=== PATIENT | male | born 1995 | race Hispanic/Latino ===

== ENCOUNTER 2023-11-14 06:30 | Emergency (ER) | payer SELFPAY ==
[~2023-11-14] VITALS: Ht 182.9 cm; Wt 133.8 kg
[2023-11-14 06:34] VITALS: TEMP 99.3
[2023-11-14 06:59] LABS: BASOPHILS % 0.1 % (0.0-1.0); EOSINOPHILS % 0.1 % (0.0-6.0); HEMATOCRIT 42.5 % (38.2-49.6); HEMOGLOBIN 14.2 g/dL (14.0-18.0); LYMPHOCYTES % 22.1 % (18.0-39.1); MEAN CORPUSCULAR HEMOGLOBIN 28.2 pg (28-32); MEAN CORPUSCULAR HGB CONC 33.4 g/dL (31-35); MEAN CORPUSCULAR VOLUME 84.5 fL (81-99); MONOCYTES # (AUTO) 1.1 (0.2-0.8); MONOCYTES % 12.2 % (4.4-11.3); NEUTROPHILS # (AUTO) 5.9 (2.1-6.9); NEUTROPHILS % 65.3 % (38.7-80.0); PLATELET COUNT 250 x10e3/uL (140-360); RED BLOOD COUNT 5.03 x10e6/uL (4.3-5.7); RED CELL DISTRIBUTION WIDTH 11.9 % (11.7-14.4); WHITE BLOOD COUNT 9.07 x10e3/uL (4.8-10.8)
[2023-11-14] MEDS: KETOROLAC TROMETHAMINE 30 MG/ML VIAL IV STA (06:59)
[2023-11-14 07:09] LABS: INR 1.03
[2023-11-14 07:10] LABS: PARTIAL THROMBOPLASTIN TIME 33.6 seconds (23.8-35.5)
[2023-11-14] MEDS: ONDANSETRON HCL INJ 2MG/ML 2ML 2 MG/ML VIAL IV STA (07:20)
[2023-11-14 07:24] LABS: ALBUMIN/GLOBULIN RATIO 0.9 (0.8-2.0); ANION GAP 14.6 mmol/L (8-16); BILIRUBIN,TOTAL 0.9 mg/dL (0.2-1.2); CALCIUM 8.9 mg/dL (8.4-10.2); CREATININE, SERUM 0.82 mg/dL (0.72-1.25); POTASSIUM 3.6 mmol/L (3.5-5.1); TOTAL PROTEIN 8.4 g/dL (6.5-8.1)
[2023-11-14] MEDS ORDERED: IOPAMIDOL 370 MG/ML 100 ML INFUS..BTL INJ ONE (07:47)
[2023-11-14 07:52] VITALS: PULSE 82; RESP 17
[2023-11-14 10:24] VITALS: BP 121/72; PULSE 72; RESP 18; O2SAT 100
== END 2023-11-14 10:28 | disposition home or self-care (01) ==
LOC: ER 06:39
DX: R50.9 Fever, unspecified (principal); H66.92 Otitis media, unspecified, left ear; H60.92 Unspecified otitis externa, left ear; I10 Essential (primary) hypertension; R73.03 Prediabetes
CPT/HCPCS: 36415; 70482; 80053; 85025; 85610; 85730; 99284; J1885; J2405; Q9967